=== PATIENT | female | born 1990 | race African-American/Black ===

== ENCOUNTER 2018-03-03 14:11 | Emergency (ER) | payer MEDICAID, OTHER ==
[~2018-03-03] VITALS: Ht 165.1 cm; Wt 77.3 kg
[~2018-03-03 14:11] MED LIST: HYDR10SY16 PO
[2018-03-03] MEDS ORDERED: SODIUM CHLORIDE 0.9% 1,000 ML IV ONE (15:30)
[2018-03-03 17:51] VITALS: BP 123/75
== END 2018-03-03 17:52 | disposition home or self-care (01) ==
LOC: EMS 14:12
DX: O9A.211 Injury, poisoning and certain other consequences of external causes complicating pregnancy, first trimester (principal); M54.2 Cervicalgia; F17.210 Nicotine dependence, cigarettes, uncomplicated; Z3A.09 9 weeks gestation of pregnancy; V43.52XA Car driver injured in collision with other type car in traffic accident, initial encounter; Y93.89 Activity, other specified; Y92.89 Other specified places as the place of occurrence of the external cause; Y99.8 Other external cause status
CPT/HCPCS: 76801; 76817; 96360; 96361; 99285; J7030